=== PATIENT | female | born 1995 | race Caucasian/White ===

== ENCOUNTER 2023-12-14 23:21 | Emergency (ER) | payer OTHER ==
[~2023-12-14] VITALS: Ht 162.6 cm; Wt 86.2 kg
[2023-12-14 23:34] VITALS: BP_SYST 168; PULSE 80; RESP 18; TEMP 98; O2SAT 100
[2023-12-15] MEDS: predniSONE 20 MG TABLET PO ONE (00:06)
[2023-12-15] MEDS ORDERED: PRED50TA PO (00:47)
[2023-12-15 01:05] VITALS: BP_SYST 154; PULSE 76; RESP 16; TEMP 97.8; O2SAT 99
== END 2023-12-15 01:05 | disposition home or self-care (01) ==
LOC: SED 23:21
DX: T78.49XA Other allergy, initial encounter (principal); Z79.899 Other long term (current) drug therapy; X58.XXXA Exposure to other specified factors, initial encounter
CPT/HCPCS: 99283; J7512